=== PATIENT | male | born 1980 | race Caucasian/White ===

== ENCOUNTER 2016-11-13 12:22 | Observation (INO) | payer BC ==
[2016-11-09 14:40] VITALS: BMI 30.2
[2016-11-09 15:10] VITALS: BP_SYST 120; RESP 20
[~2016-11-13] VITALS: Ht 185.4 cm; Wt 104.3 kg
[2016-11-13] VITALS (21 sets, daily range): BP systolic 104–138; RESP 10–36; TEMP 96.9–97.6; Ht 185.4 cm; Wt 104.3 kg
[~2016-11-13 12:22] MED LIST: FENTANYL 100 MCG/2 ML AMP IV ONE; GLYCOPYRROLATE 0.2 MG/ML VIAL IV ONE; LACT RINGERS 1,000 ML IV SCH; LIDOCAINE 1% BUFFERED 1 ML SYR INTRADERM PRN; LIDOCAINE 2% SYR 5 ML IV ONE; LIDOCAINE/EPI 1% MDV 20 ML INFILTRATE ONE; MIDAZOLAM 2 MG/2 ML INJ IV ONE; NEOSTIGMINE 10 MG/10 ML VIAL IV ONE; POVIDONE TOPICAL ONE; PROPOFOL 20 ML PER ML IV ONE; ROCURONIUM 50 MG VIAL IV ONE; SUCCINYLCHOLINE 20 MG/ML VL IV ONE
[2016-11-13] MEDS ORDERED: MORPHINE 2 MG/ML SYR IV PRN ×2 (17:30→18:25)
[2016-11-13] MEDS ORDERED: MORPHINE 4 MG/ML SYR IV PRN ×2 (17:30→18:25)
[2016-11-13] MEDS ORDERED: OXYCODONE 5 MG TAB PO PRN (17:30)
[2016-11-13] MEDS ORDERED: MEPERIDINE 25 MG/ML IV PRN (17:30)
[2016-11-13] MEDS ORDERED: ONDANSETRON 4 MG VIAL IV PRN ×2 (17:30→18:25)
[2016-11-13] MEDS ORDERED: SODIUM CHLORIDE 0.45% 1,000 ML IV SCH (18:25)
[2016-11-13] MEDS ORDERED: PROMETHAZINE 25 MG SUPP RECTAL PRN (18:25)
[2016-11-13] MEDS ORDERED: SALINE FLUSH 10 ML FLUSH PRN (18:25)
[2016-11-13] MEDS: DILAUDID 1 MG/ML AMP IV PRN ×4 (18:40→19:03)
[2016-11-13] MEDS ORDERED: HYDROGEN PEROXIDE 3% 480 ML TOPICAL SCH (21:00)
[2016-11-13] MEDS ORDERED: BACITRACIN OINT TOPICAL SCH (21:00)
[2016-11-14 00:33] VITALS: BP_SYST 115; RESP 18; TEMP 97.9
[2016-11-14] MEDS: CALCIUM CARB/VIT D3 600 MG TAB PO SCH ×2 (00:36→09:12)
[2016-11-14 04:08] VITALS: BP_SYST 124; RESP 18; TEMP 97.6
[2016-11-14 07:34] VITALS: BP_SYST 125; RESP 18; TEMP 97.8
[2016-11-14 09:00] VITALS: BP_SYST 125; RESP 18; TEMP 97.8
== END 2016-11-14 08:42 | disposition home or self-care (01) ==
LOC: ENRESERVTM → ENRESERVDT → SURG 12:22 → SDS 18:21 → 3S 19:50
PROVIDERS: ADMIT Otolaryngology; ATTEND Otolaryngology
DX: E05.91 Thyrotoxicosis, unspecified with thyrotoxic crisis or storm (principal); J39.8 Other specified diseases of upper respiratory tract; E04.1 Nontoxic single thyroid nodule; I10 Essential (primary) hypertension; F17.210 Nicotine dependence, cigarettes, uncomplicated
CPT/HCPCS: 36415; 71020; 80048; 82310; 83970; 85025; 85610; 85730; 88307; 88331; 94762; 94799